=== PATIENT | male | born 2000 | race African-American/Black ===

== ENCOUNTER 2024-09-25 16:02 | Emergency (ER) | payer MEDICAID, OTHER ==
[~2024-09-25] VITALS: Ht 182.9 cm; Wt 64.0 kg
--- NOTE | 2024-09-25 16:41 | DVH ---
LUMBAR SPINE 3 VIEWS REASON FOR EXAM: Low back pain COMPARISON: None TECHNIQUE: AP and lateral views of the lumbar spine as well as a magnified lateral view of the vero mbosacral junction are obtained. FINDINGS: Five lumbar type vertebra are identified. The vertebral body heights are maintained and the re is no evidence of fracture. Alignment is normal. No significant degenerative changes are present . The soft tissues are unremarkable. IMPRESSION: No evidence of fracture or subluxation of the lumbar spine.
[2024-09-25 19:48] LABS: COVID19 ANTIGEN SOFIA FIA POSITIVE (NEGATIVE)
[2024-09-25] MEDS ORDERED: ACET500T58 PO (20:14)
[2024-09-25] MEDS ORDERED: IBUP-1454 PO (20:14)
[2024-09-25] MEDS ORDERED: ZOFR4T PO (20:15)
--- NOTE | 2024-09-25 20:16 | ED.PDOC ---
History of Present Illness HPI Comments This patient is a 23-year-old male who arrives the ED today for evaluation of general weakness and low back pain concerns for the past day. Patient states that he has a COVID positive household a beal sent home and that is his child has COVID. Patient denies any fever or vomiting but states intermittent nausea. Patient has a elevated temperature and was tachycardic at arrival. Chief Complaint: Flu like Time Seen by MD: 16:07 Reviewed Notes: Nurses Notes Allergies: Coded Allergies: NO KNOWN ALLERGIES (Unverified , 09/25/24) Information Source: Patient Mode of Arrival: Ambulatory Severity: Moderate Timing: Days Duration: Since onset Prehospital treatment: None Past Medical History PAST MEDICAL HISTORY: Denies Surgical History: Denies all surgeries Family History Family History: Reviewed,noncontributory to illness, No family hx of Cancer, No family hx of DM, No family hx of Heart yonatan, No family hx of HTN, No family hx ofKidney yonatan, No family hx of Liver yonatan, No family hx of Lung yonatan, No family hx of Stroke Social History Smoker: Non-Smoker Alcohol: Denies ETOH Use Drugs: Denies Drug Use Lives In: Home Constitutional: reports: fatigue, malaise, weakness; denies: chills, diaphoresis, fever, sweats, others EENTM: denies: blurred vision, double vision, ear bleeding, ear discharge, ear drainage, ear pain, ear ringing, eye pain, eye redness, hearing loss, mouth pain, mouth swelling, nasal discharge, nose bleeding, nose congestion, nose pain, photophobia, tearing, throat pain, throat swelling, voice changes, others Respiratory: denies: cough, hemoptysis, orthopnea, SOB at rest, shortness of breath, SOB with excertion, stridor, wheezing, others Cardiovascular: denies: chest pain, dizzy spells, diaphoresis, Dyspnea on exertion, edema, irregular heart beat, left arm pain, lightheadedness, palpitations, PND, syncope, others Gastrointestinal: denies: abdomen distended, abdominal pain, blood streaked bowels, constipated, diarrhea, dysphagia, difficulty swallowing, hematemesis, melena, nausea, poor appetite, poor fluid intake, rectal bleeding, rectal pain, vomiting, others Genitourinary: denies: burning, dysuria, flank pain, frequency, hematuria, incontinence, penile discharge, penile sore, pain, testicle pain, testicle swelling, urgency, others Neurological: denies: dizziness, fainting, headache, left sided numbness, left sided weakness, numbness, paresthesia, pre-existing deficit, right sided numbness, right sided weakness, seizure, speech problems, tingling, tremors, weakness, others Musculoskeletal: reports: back pain; denies: gout, joint pain, joint swelling, muscle pain, muscle stiffness, neck pain, others Integumetry: denies: bruises, change in color, change in hair/nails, dryness, laceration, lesions, lumps, rash, wounds, others Allergic/Immunocompromised: denies: Difficulty Healing, Frequent Infections, Hives, Itching, others Hematologic/Lymphatic: denies: anemia, blood clots, easy bleeding, easy bruising, swollen glands, others Endocrine: denies: excessive hunger, excessive sweating, excessive thirst, excessive urination, flushing, intolerance to cold, intolerance to heat, une xplained weight gain, unexplained weight loss, others Psychiatric: denies: anxiety, bipolar disorder, depression, hopeless, panic disorder, schizophrenia, sleepless, suicidal, others Physical Exam General Appearance: Moderate Distress (Eish-ji-[id number] distress due to complaints.), Normal HEENT: Normal ENT Inspection, Pharynx Normal, TMs Normal Neck: Full Range of Motion, Non-Tender, Normal, Normal Inspection Respiratory: Chest Non-Tender, Lungs Clear, No Accessory Muscle Use, No Respiratory Distress, Normal Breath Sounds Cardiovascular: No Edema, No JVD, No Murmur, No Gallop, Normal Peripheral Pulses, Regular Rate/Rhythm Breast Exam: Deferred Gastrointestinal: No Organomegaly, Non Tender, No Pulsatile Mass, Normal Bowel Sounds, Soft Genitalia: Deferred Pelvic: Deferred Rectal: Deferred Extremities: No calf tenderness, Normal capillary refill, Normal inspection, N ormal range of motion, Non-tender, No pedal edema Musculoskeletal : Location: Bilateral Extremity Location: Back (Diffuse nonspecific lumbar tenderness to palpation throughout. No step-offs noted. No signs of trauma.) Apperance: Normal Neurologic: Alert, master baker II-XII nml as Tested, No Motor Deficits, Normal Affect, Normal Mood, No Sensory Deficits Cerebellar Function: Normal Reflexes: Normal Skin: Dry, Normal Color, Warm Lymphatic: No Adenopathy Was a procedure done? Was a procedure done?: No Differential Dx Considerations may include: COVID, influenza, degenerative disc disease of the lumbar spine, viral illness X-Ray, Labs, Meds, VS Vital Signs Date Time Temp Pulse Resp B/P (MAP) Pulse Ox O2 Delivery O2 Flow Rate FiO2 09/25/24 16:05 99.9 102 18 110/59 97 99.9 Lab Test 09/25/24 18:43 Range/Units Influenza Type A Antigen Negative Negative Influenza Type B Antigen Negative Negative SARS-CoV-2 Antigen (Rapid) Positive *A NEGATIVE X-Ray, Labs, Meds, VS Comment All studies performed the ED were evaluated by me personally. Imaging studies of the lumbar spine were unremarkable for any acute concerns. Swabs confirmed a COVID-19 diagnosis. Patient has been advised to utilize Tylenol and or Motrin as needed for symptomatic relief as well as good hydration and healthy nutrition throughout. Time of 1ST Reevaluation: 20:15 Reevaluation 1ST: Improved Consultation: PCP Patient Education/Counseling: Diagnosis, Treatment Family Education/Counseling: Diagnosis, Treatment SEPSIS Sepsis Screen Date sepsis recognized/suspect: Sep 25, 2024 Time Sepsis recognized/suspect: 1607 Recent Procedure: No On Antibiotic Therapy: No Respiratory Rate >20: No Heart Rate >90: Yes Temp<36 C (96.8 F) or >38.3 C: No SBP <90 or MAP <65 mmHG: No New Acute Mental Status Change: No Is the patient on CPAP, BIPAP,: No Physician Orders Urinalysis (09/25/24 16:12) Lumbar Spine 3 View (09/25/24 16:12) Vital Signs Date Time Temp Pulse Resp B/P (MAP) Pulse Ox O2 Delivery O2 Flow Rate FiO2 09/25/24 16:05 99.9 102 18 110/59 97 99.9 Departure 1 Departure Time of Disposition: 20:13 Impression: Primary Impression: COVID-19 Disposition: 01 HOME / SELF CARE / HOMELESS Condition: Stable Additional Instructions: Tylenol and or Motrin as needed for discomfort relief. Good hydration and healthy nutrition has been advised throughout. e-Prescriptions Ondansetron Odt 4MG Tab (ZOFRAN PO) 4 Mg Tb 4 MG PO Q6HP PRN, #15 TAB ODT TAB-DISSOLVE IN MOUTH, THEN SWALLOW Prov: SARA FRANCISCO PAC 09/25/24 Acetaminophen (Acetaminophen) 500 Mg Tab 500 MG PO Q4HP PRN, #30 TAB Prov: SARA FRANCISCO PAC 09/25/24 Ibuprofen (Ibuprofen) 600 Mg Tab 1 TAB PO Q6HP PRN, #30 TAB Prov: SARA FRANCISCO PAC 09/25/24 Discharged With: Self, Friend Critical Care Note Critical Care Time?: No Stability Stability form required: No Heart Score Heart Score: Heart Score Response (Comments) Value History N/A 0 EKG N/A 0 Age N/A 0 Risk Factors N/A 0 Troponin N/A 0 Total 0 SARA FRANCISCO PAC Sep 25, 2024 20:16
[2024-09-25 20:27] LABS: Urine Protein, UAD TRACE (Negative)
[2024-09-25 22:00] VITALS: BP 122/61; PULSE 63; RESP 16; TEMP 98.9; O2SAT 96
[2024-09-25] MEDS: KETOROLAC TROMETH 60MG/2ML VIAL IM ONE (22:10)
[2024-09-25] MEDS: ONDANSETRON ODT 4 MG TAB PO ONE (22:13)
== END 2024-09-25 22:22 | disposition home or self-care (01) ==
LOC: ER 16:02
DX: U07.1 COVID-19 (principal)
CPT/HCPCS: 36415; 72100; 81001; 87426; 87804; 96372; 99284; J1885; Q0162